=== PATIENT | female | born 1940 | race Caucasian/White ===

== ENCOUNTER 2022-06-02 10:21 | Outpatient (REF) | payer MEDICARE, SELFPAY ==
--- NOTE | ~2022-06-02 | XR_ITS ---
EXAMINATION: BILATERAL HAND/WRIST. CLINICAL INFORMATION: Rheumatoid arthritis COMPARISON: None TECHNIQUE: 4 views each hand. FINDINGS: Right hand: There is diffuse osteopenia with loss of PIP and DIP joints all digits. There is mild periarticular spurring PIP joint first and DIP joints second and third digits. There is moderate soft tissue swelling of all digits. No visible acute fracture or dislocation seen. There is moderate loss of first carpometacarpal joint space with periarticular spurring and mild subluxation of the joint. Left hand/wrist: There is mild loss of PIP, DIP joint and first carpometacarpal joint. There is loss of joint space with mild spurring of the first carpal metacarpal joint. No visible acute fracture, dislocation or subluxation seen. There is diffuse osteopenia. There is soft tissue swelling of all digits. XR/XR hand wrist LT IMPRESSION: Diffuse osteopenia. Degenerative arthritic changes PIP, DIP joints and first carpometacarpal joints both hands.
--- NOTE | ~2022-06-02 | XR_ITS ---
EXAMINATION: BILATERAL HAND/WRIST. CLINICAL INFORMATION: Rheumatoid arthritis COMPARISON: None TECHNIQUE: 4 views each hand. FINDINGS: Right hand: There is diffuse osteopenia with loss of PIP and DIP joints all digits. There is mild periarticular spurring PIP joint first and DIP joints second and third digits. There is moderate soft tissue swelling of all digits. No visible acute fracture or dislocation seen. There is moderate loss of first carpometacarpal joint space with periarticular spurring and mild subluxation of the joint. Left hand/wrist: There is mild loss of PIP, DIP joint and first carpometacarpal joint. There is loss of joint space with mild spurring of the first carpal metacarpal joint. No visible acute fracture, dislocation or subluxation seen. There is diffuse osteopenia. There is soft tissue swelling of all digits. XR/XR hand wrist RT IMPRESSION: Diffuse osteopenia. Degenerative arthritic changes PIP, DIP joints and first carpometacarpal joints both hands.
[2022-06-02 13:34] LABS: MANUAL DIFF FLAG NO
[2022-06-02 13:41] LABS: Basophils Percent Auto 0.4 % (0-2); Eosinophils Absolute Auto 0.1 X10*3/uL (0.0-0.4); Eosinophils Percent Auto 1.2 % (0-4); Hemoglobin 11.6 g/dl (12.0-16.0); Imm Gran Abs Auto 0.04 X10*3/uL (0.00-0.03); Imm Gran Pct Auto 0.4 % (0.0-0.4); Lymphocytes Absolute Auto 1.5 X10*3/uL (1.2-4.9); Lymphocytes Percent Auto 13.2 % (20-40); Mean Corpuscular HGB Conc 31.4 g/dl (31.0-35.0); Mean Corpuscular Hemoglobin 26.7 pg (27.0-33.0); Mean Corpuscular Volume 85.1 fL (80.0-98.0); Mean Platelet Volume 10.6 fL (9.4-12.3); Monocytes Absolute Auto 0.9 X10*3/uL (0.1-1.2); Monocytes Percent Auto 8.3 % (2-11); Neutrophils Absolute Auto 8.6 x10*3/uL (2.0-8.3); Neutrophils Percent Auto 76.5 % (45-73); Platelet Count 368 X10*3/uL (160-400); Red Blood Count 4.35 X10*6/uL (4.20-5.50); Red Cell Distribution Width 13.8 % (11.0-16.0); White Blood Count 11.2 X10*3/uL (4.8-10.8)
[2022-06-02 13:59] LABS: Alanine Aminotransferase 15 U/L (0-31); Alkaline Phosphatase 104 U/L (39-117); Anion Gap 16 (12-20); Aspartate Amino Transferase 17 U/L (5-31); Bilirubin Total 0.8 mg/dL (0.0-1.0); Blood Urea Nitrogen 18 mg/dL (9-16); C Reactive Protein 2.37 mg/dL (< or = 0.50); Calcium 9.5 mg/dL (8.4-10.2); Carbon Dioxide 26 mmol/L (22-29); Chloride 101 mmol/L (96-108); Estimated Glomerular Filt Rate > 60; Glucose Random 90 mg/dL (60-115); Potassium 4.5 mmol/L (3.3-5.1); Sodium 138 mmol/L (135-145)
[2022-06-02 14:27] LABS: HBS Num1 0.22 mIU/mL (0-7.99); HBc Num1 0.25 S/CO (0.00-0.79); HBsAGNum1 0.24 S/CO (0.00-0.99); Hepatitis A Antibody IgM 0.26 Index (0-0.79); Hepatitis B Core Antibody Nonreactive (Nonreactive); Hepatitis B Surface Antigen Negative (Negative); ~HepC Num1 0.06 S/CO (0.00-0.79); ~Hepatitis A Antibody IgM Nonreactive (Nonreactive); ~Hepatitis B Surface Antibody NONREACTIVE (Nonreactive); ~Hepatitis C Antibody Nonreactive (Nonreactive)
[2022-06-02 14:34] LABS: Erythrocyte Sedimentation Rate 44 MM/HR (0-20)
[2022-06-03 23:27] LABS: Prot Elec - Albumin 3.6 g/dL (3.8-4.8); Prot Elec - Alpha1 0.4 g/dL (0.2-0.3); Prot Elec - Alpha2 1.1 g/dL (0.5-0.9); Prot Elec - Beta 1 0.5 g/dL (0.4-0.6); Prot Elec - Beta 2 0.3 g/dL (0.2-0.5); Prot Elec - Gamma 1.1 g/dL (0.8-1.7)
[2022-06-04 13:01] LABS: Cyclic Citrullinated Peptide <16 UNITS
[2022-06-05 02:12] LABS: TS Negative Control Passed; TS Panel A 0; TS Panel B 0; TS Positive Control Passed; TSpotTB Negative (Negative)
[2022-06-06 12:16] LABS: IgA 132 mg/dL (70-320); IgG 1229 mg/dL (600-1540); IgM 88 mg/dL (50-300)
[2022-07-19 14:16] LABS: Rheumatoid Factor < 13.0 IU/mL (<15.0)
== END 2022-06-02 10:22 | disposition home or self-care (01) ==
LOC: HO.XRAY 10:21
PROVIDERS: PCP Internal Medicine; Visit Provider Student in an Organized Health Care Education/Training Program
DX: Z11.59 Encounter for screening for other viral diseases (principal); Z11.7 Encounter for testing for latent tuberculosis infection; M06.09 Rheumatoid arthritis without rheumatoid factor, multiple sites
CPT/HCPCS: 36415; 73110; 73130; 80053; 82784; 84165; 85025; 85652; 86140; 86200; 86334; 86431; 86481; 86704; 86706; 86709; 86803; 87340; 99202

== ENCOUNTER 2022-06-20 10:23 | Outpatient (REF) | payer MEDICARE, SELFPAY ==
--- NOTE | ~2022-06-20 | MM_ITS ---
EXAMINATION: BONE DENSITOMETRY CLINICAL INDICATION: Menopausal and female climacteric states. COMPARISON: Baseline BD dated 04/05/2007. TECHNIQUE: Using a Multispectral Imaging DXA System (software version: 13.1) manufactured by [employer], dual-energy x-ray absorptiometry was performed of the lumbar spine and left hip. The images are of good technical quality. Summary results are attached. FINDINGS: AP SPINE L1-L4: Current: BMD 0.789 g/cm2, Z-score -1.7, T-score -3.3, osteoporosis, 5.6% decrease from baseline (<5% change is not significant). Baseline: BMD 0.836 g/cm2. LEFT FEMUR, NECK: Current: BMD 0.626 g/cm2, Z-score -0.9, T-score -3.0, osteoporosis. Baseline: BMD 0.686 g/cm2. LEFT FEMUR, TOTAL: Current: BMD 0.637 g/cm2, Z-score -1.0, T-score -2.9, osteoporosis, 12.7% decrease from baseline (<5% change is not significant). Baseline: BMD 0.730 g/cm2. IDENTIFIED RISK FACTORS: Height loss, rheumatoid arthritis, menopause. HISTORY OF FRACTURE: None listed. MEDICATIONS: Calcium supplements or multivitamin, vitamin D. MM/XR DEXA axial skeleton IMPRESSION: 1. DIAGNOSIS: Osteoporosis based on the lowest T-score value of -3.3 in the lumbar spine applying World Health Organization criteria. 2. 10-YEAR FRACTURE RISK PREDICTION, FRAX: According to the guidelines, FRAX calculation should only be performed on patients in the osteopenia bone density category. Therefore, FRAX was not performed on this patient. 3. Treatment Recommendations: NOF guidelines recommend consideration for treatment in postmenopausal women and men age 50 and older presenting with the following: -A hip or vertebral (clinical or morphometric) fracture. -T-score less than or equal to -2.5 at the femoral neck or spine after appropriate evaluation to exclude secondary causes. -Low bone mass at the hip or spine and a 10-year fracture probability by FRAX of greater than or equal to 3% for hip fracture or greater than or equal to 20% for major osteoporotic fracture based on the [place] adapted WHO algorithm. 4. Other Recommendations: All treatment decisions require clinical judgment and consideration of individual patient factors, including patient preferences, comorbidities, previous drug use, risk factors not captured in the FRAX model (e.g. frailty, falls, vitamin D deficiency, increased bone turnover, interval significant decline in bone density) and possible under or overestimation of fracture risk by FRAX. Additional medical evaluation for secondary cause of low bone mineral density may be appropriate. FUTURE SCAN RECOMMENDATION: People with diagnosed cases of osteoporosis or at high risk for fracture should have regular bone mineral density tests. For patients eligible for Medicare, routine testing is allowed once every 2 years. The testing frequency can be increased to one year for patients who have rapidly progressing disease, those who are receiving or discontinuing medical therapy to restore bone mass, or have additional risk factors.
== END 2022-06-20 10:24 | disposition home or self-care (01) ==
LOC: HO.MAMMO 10:23
PROVIDERS: Visit Provider Student in an Organized Health Care Education/Training Program
DX: Z13.820 Encounter for screening for osteoporosis (principal); Z78.0 Asymptomatic menopausal state
CPT/HCPCS: 77080

== ENCOUNTER → 2022-07-19 11:39 | Outpatient (BNVA) | payer MEDICARE, SELFPAY | PROVIDERS: PCP Internal Medicine; Visit Provider Student in an Organized Health Care Education/Training Program | DX: M06.09 Rheumatoid arthritis without rheumatoid factor, multiple sites (principal); M81.0 Age-related osteoporosis without current pathological fracture | CPT/HCPCS: 99212 ==